=== PATIENT | female | born 1980 | race African-American/Black ===

== ENCOUNTER 2017-08-02 12:42 | Emergency (ER) | payer SELFPAY ==
[~2017-08-02] VITALS: Ht 172.7 cm; Wt 95.3 kg
[~2017-08-02 12:42] MED LIST: DEXILANT30 MG ORAL; FLONASE16 GM NASAL; ZYRTEC10 MG ORAL
--- NOTE | 2017-08-02 13:10 | Emergency Room Report ---
History of Present Illness General Chief Complaint: Lower Extremity Injury Source: Patient (Tawanda Garza) Present Illness HPI 37-year-old female patient presents to ER complaining of right ankle pain. Reports that she was stepping off a curb last night when she twisted it, reports inversion injury. Reports pain with ambulation since that time. Reports did not hit head, FOOSH, or lose consciousness. Denies other acute symptoms. Denies fever, chest pain, shortness of breath. (Tawanda Garza) Allergies: Coded Allergies: OMEPRAZOLE (Unverified Allergy, Intermediate, Rash, 08/02/17) RANITIDINE (Unverified Allergy, Intermediate, Rash, 08/02/17) Patient History Past Medical History: see triage record Last Menstrual Period: last week Now: No Reviewed Nursing Documentation: PMH: Agreed; PSxH: Agreed (Tawanda Garza) Nursing Documentation-PMH Past Medical History: No Stated History (Tawanda Garza) Review of Systems All Other Systems: negative except mentioned in HPI (Tawanda Garza) Physical Exam Vital Signs Date Time Temp Pulse Resp B/P (MAP) Pulse Ox O2 Delivery O2 Flow Rate FiO2 08/02/17 12:54 98.8 88 19 132/84 97 Room Air 98.8 Sp02 EP Interpretation: reviewed, normal General Appearance: well appearing, no apparent distress, alert, GCS 15, non- toxic Head: normocephalic, atraumatic ENT: hearing grossly normal, normal pharynx, no angioedema, normal voice, uvula midline, moist mucus membranes Neck: full range of motion Respiratory: lungs clear, normal breath sounds, no rhonchi, no respiratory distress, no accessory muscle use, no wheezing, speaking full sentences Cardiovascular #1: regular rate, rhythm, no edema Cardiovascular #2: 2+ dorsalis pedis (R), 2+ dorsalis pedis (L) Musculoskeletal: back normal, digits/nails normal, gait/station normal, normal range of motion, no calf tenderness, swelling - mild swelling over right lateral malleolus, no erythema, other - NVI, Refill less than 2 seconds, negative ankle drawer, negative syndesmotic squeeze, tender - right lateral malleolus Neurologic: alert, oriented x3, responsive, motor strength/tone normal, sensory intact Skin: no rash (Tawanda Garza) Medical Decision Making PA Attestation Dr. Rivera is my supervising Physician whom patient management has been discussed with. (Tawanda Garza) Diagnostic Impression: Primary Impression: Ankle sprain ER Course Pt. presents to the ED c/o right ankle pain. Ddx considered but are not limited to fracture, sprain, strain, contusion, dislocation. No erythema, no warmth to touch, no fever, nontoxic appearing, low suspicion for septic joint. no deformity, normal range of motion, low suspicion for dislocation. Vital signs: are WNL, pt. is afebrile Ordered X-ray and pain medication. ER COURSE Provided with pain medication. An X-ray of the right ankle shows no acute fracture per the preliminary reading. Likely ankle sprain. Informed patient of results. LAI wrap was applied to the right ankle was checked afterwards by me showing good alignment and support with distal neurovascular functioning intact. crutches offered to patient . patient declined crutches, states she is able to walk without them. Patient instructed on RICE method: rest, ice, compression, elevation. Patient instructed on rest, ice and heat. Patient instructed to be WBAT Followup with primary care provider. Discuss referral to ortho/pain management/ PT as needed. Discuss further imaging with MRI/CT as needed. DISCHARGE: -Rx provided for Tylenol for pain symptoms. At this time pt. is stable for d/c to home. Patient is resting comfortably, in no acute distress, nontoxic appearing, talking without difficulty. Will provide printed patient care instructions, and any necessary prescriptions. Patient instructed to follow with primary care provider in 3 - 5 days and to request further follow-up as needed. Care plan and follow up instructions have been discussed with the patient prior to discharge. Take medications as directed. Patient questions asked and answered. Patient reports understanding and agreement to treatment plan. ER precautions given, patient instructed to return to ER immediately for any new or worsening of symptoms. - Please note that this Emergency Department Report was dictated using [employer] technology software, occasionally this can lead to erroneous entry secondary to interpretation by the dictation equipment. (Tawanda Garza) Other X-Ray Diagnostic Results Other X-Ray Diagnostic Results : X-Ray ordered: right ankle # of Views/Limited Vs Complete: 3 View Indication: Pain EP Interpretation: Yes PA Xray: Interpretation reviewed, by supervising MD, and agrees with findings. Interpretation: no dislocation, no soft tissue swelling, no fractures Impression: No acute disease PA Scribe Text Mitch Garza PA-C (Tawanda Garza) Other X-Ray Diagnostic Results : Electronically Signed by: Pamelaibe documentation reviewed by me and is accurate, Colby Rivera MD (Colby Rivera M.D.) Last Vital Signs Date Time Temp Pulse Resp B/P (MAP) Pulse Ox O2 Delivery O2 Flow Rate FiO2 08/02/17 12:54 98.8 88 19 132/84 97 Room Air 98.8 (Tawanda Garza) Disposition: HOME, SELF-CARE Condition: Stable Scripts Acetaminophen* (TYLENOL EXTRA STRENGTH*) 500 Mg Tablet 500 MG ORAL Q8H PRN for Prn Headache/Temp > 101, #30 TAB 0 Refills Prov: Tawanda Garza 08/02/17 Patient Instructions: Ankle Sprain Additional Instructions: Patient instructed to follow up with primary care provider and discuss further referral to orthopedics. Patient instructed on RICE method: rest, ice, compression, elevation. Patient instructed to WBAT. Take medications as directed. Patient questions asked and answered. ER precautions given, patient instructed to return to ER immediately for any new or worsening of symptoms. Tawanda Garza Aug 02, 2017 13:10 Colby Rivera M.D. Aug 04, 2017 09:31
[2017-08-02] MEDS ORDERED: Acetaminophen 500mg (ES) tab ORAL ONE (13:15)
[2017-08-02] MEDS ORDERED: TYLENOL EXTRA500 MG ORAL (13:37)
--- NOTE | 2017-08-02 15:25 | Diagnostic Imaging Report ---
Indication: Pain right ankle ankle pain/trauma Comparison: None Findings: 3 views of the right ankle obtained. No acute fracture, malalignment, periostitis, or osteochondral defects are identified. Soft tissues are unremarkable. Impression: Negative examination
== END 2017-08-02 14:10 | disposition home or self-care (01) ==
LOC: EDBD → EMR 13:28 → MERGE 13:28 → EMR 14:10
DX: S93.401A Sprain of unspecified ligament of right ankle, initial encounter (principal); W18.39XA Other fall on same level, initial encounter; Y92.480 Sidewalk as the place of occurrence of the external cause; Z88.8 Allergy status to other drugs, medicaments and biological substances
CPT/HCPCS: 99283